=== PATIENT | female | born 1990 | race Caucasian/White ===

== ENCOUNTER → 2020-05-25 10:08 | Outpatient (BNVA) | payer MEDICAID, SELFPAY | PROVIDERS: Family Provider Family Medicine; Visit Provider Internal Medicine | DX: E89.0 Postprocedural hypothyroidism (principal); Z85.850 Personal history of malignant neoplasm of thyroid | CPT/HCPCS: 99203 ==

== ENCOUNTER 2020-05-26 10:55 | Outpatient (CLI) | payer MEDICAID, SELFPAY ==
[2020-05-26 11:40] LABS: Free T4 Free Thyroxine 1.89 ng/dL (0.82-1.77); Thyroid Stimulating Hormone 0.02 uIU/mL (0.27-4.20)
[2020-05-29 17:25] LABS: Thyroglobulin AB <1 IU/mL (< or = 1)
[2020-05-31 12:54] LABS: Thyroglobulin Level <0.4 ng/mL
== END 2020-05-26 10:56 | disposition home or self-care (01) ==
LOC: LAB 10:58
PROVIDERS: Family Provider Family Medicine; Visit Provider Internal Medicine
DX: E89.0 Postprocedural hypothyroidism (principal); Z85.850 Personal history of malignant neoplasm of thyroid
CPT/HCPCS: 84432; 84439; 84443; 86800

== ENCOUNTER → 2020-06-12 11:31 | Outpatient (BNVA) | payer MEDICAID, SELFPAY | PROVIDERS: Family Provider Family Medicine; Visit Provider Nurse Practitioner Family | DX: Z20.828 Contact with and (suspected) exposure to other viral communicable diseases (principal); J06.9 Acute upper respiratory infection, unspecified | CPT/HCPCS: 87635 ==

== ENCOUNTER 2020-06-15 07:34 | Outpatient (CLI) | payer MEDICAID, SELFPAY ==
--- NOTE | 2020-06-15 08:00 | US_ITS ---
WS: [id number] THYROID ULTRASOUND HISTORY: hx of papillary thyroid cancer s/p thyroidectomy in 2003 COMPARISON: 06/25/2016 Status post thyroidectomy. There is no residual thyroid tissue in the thyroid bed. No adjacent adenop athy along the cervical chains. US/US thyroid [id number] IMPRESSION: 1. Status post thyroidectomy. 2. No cervical chain lymphadenopathy.
== END 2020-06-15 07:35 | disposition home or self-care (01) ==
LOC: US 07:34
PROVIDERS: PCP Family Medicine; Visit Provider Internal Medicine
DX: Z85.850 Personal history of malignant neoplasm of thyroid (principal); E89.0 Postprocedural hypothyroidism
CPT/HCPCS: 76536

== ENCOUNTER → 2020-07-25 10:42 | Outpatient (BNVA) | payer MEDICAID, SELFPAY | PROVIDERS: PCP Family Medicine; Visit Provider Internal Medicine | DX: E89.0 Postprocedural hypothyroidism (principal); F32.81 Premenstrual dysphoric disorder; Z85.850 Personal history of malignant neoplasm of thyroid | CPT/HCPCS: 99214 ==

== ENCOUNTER → 2021-01-17 10:35 | Outpatient (BNVA) | payer MEDICAID, SELFPAY | PROVIDERS: PCP Family Medicine; Visit Provider Internal Medicine | DX: E89.0 Postprocedural hypothyroidism (principal); F32.81 Premenstrual dysphoric disorder; O99.280 Endocrine, nutritional and metabolic diseases complicating pregnancy, unspecified trimester; Z85.850 Personal history of malignant neoplasm of thyroid | CPT/HCPCS: 99214 ==

== ENCOUNTER → 2021-03-15 13:19 | Outpatient (BNVA) | payer MEDICAID, SELFPAY | PROVIDERS: PCP Family Medicine; Visit Provider Obstetrics & Gynecology | DX: Z34.80 Encounter for supervision of other normal pregnancy, unspecified trimester (principal); E07.9 Disorder of thyroid, unspecified | CPT/HCPCS: 84315; 87491; 87591 ==

== ENCOUNTER → 2021-03-21 09:26 | Outpatient (BNVA) | payer MEDICAID, SELFPAY | PROVIDERS: PCP Family Medicine; Visit Provider Obstetrics & Gynecology | DX: Z36.87 Encounter for antenatal screening for uncertain dates (principal) | CPT/HCPCS: 76805 ==

== ENCOUNTER → 2021-03-30 14:11 | Outpatient (BNVA) | payer MEDICAID, SELFPAY | PROVIDERS: PCP Family Medicine; Visit Provider Obstetrics & Gynecology | DX: O99.280 Endocrine, nutritional and metabolic diseases complicating pregnancy, unspecified trimester (principal); E07.9 Disorder of thyroid, unspecified; O99.212 Obesity complicating pregnancy, second trimester; F41.9 Anxiety disorder, unspecified; O99.340 Other mental disorders complicating pregnancy, unspecified trimester; Z85.850 Personal history of malignant neoplasm of thyroid; E89.0 Postprocedural hypothyroidism | CPT/HCPCS: 84315; 84439; 84443 ==

== ENCOUNTER → 2021-04-10 09:49 | Outpatient (BNVA) | payer MEDICAID, SELFPAY | PROVIDERS: PCP Family Medicine; Visit Provider Nurse Practitioner Women's Health | DX: Z34.80 Encounter for supervision of other normal pregnancy, unspecified trimester (principal); E07.9 Disorder of thyroid, unspecified; F41.9 Anxiety disorder, unspecified | CPT/HCPCS: 82950; 84315 ==

== ENCOUNTER → 2021-05-11 08:13 | Outpatient (BNVA) | payer MEDICAID, SELFPAY | PROVIDERS: PCP Family Medicine; Visit Provider Nurse Practitioner Women's Health | DX: O99.280 Endocrine, nutritional and metabolic diseases complicating pregnancy, unspecified trimester (principal); E07.9 Disorder of thyroid, unspecified; O99.340 Other mental disorders complicating pregnancy, unspecified trimester; F41.9 Anxiety disorder, unspecified | CPT/HCPCS: 84315; 84439; 84443; 85027 ==

== ENCOUNTER → 2021-06-05 08:48 | Outpatient (BNVA) | payer MEDICAID, SELFPAY | PROVIDERS: PCP Family Medicine; Visit Provider Obstetrics & Gynecology | DX: Z34.80 Encounter for supervision of other normal pregnancy, unspecified trimester (principal) | CPT/HCPCS: 80048; 84315; 85025 ==

== ENCOUNTER 2021-06-15 17:05 | Outpatient (CLI) | payer MEDICAID, SELFPAY ==
[2021-06-15] VITALS (29 sets, daily range): BP systolic 118–137; BP diastolic 60–75; PULSE 98–112; TEMP 36.5; O2SAT 99–100; BMI 31.8
[2021-06-15 17:47] LABS: Charge for UA Resulting for Rev
--- NOTE | 2021-06-15 18:07 | P.PCN_ITS ---
Procedure/Consent Procedure Narrative: NONSTRESS TEST: Place of test: [facility] [place]-L&D Indication: 30-year-old 6 para 2-0-3-2 at 33 weeks and 3 days, abdominal pain, possible elevated blood pressure. Date and time of test: 06/15/2021 Baseline: 150 Variability: Moderate variability Accelerations: Present Decelerations: No decelerations Tocometry: no Contractions INTERPRETATION: NST reactive, continue kick counts
[2021-06-15 18:55] LABS: Urine Color Yellow (Yellow)
[2021-06-15 18:56] LABS: Add Urine Microscopic? YES; Bilirubin Urine Neg (Negative); Blood Urine Neg (Negative); Glucose Urine UA Norm (Normal); Ketones Urine Negative (Negative); Leukocyte Esterase Urine 1+ (Negative); Nitrate Urine Negative (Negative); Protein Urine Neg (Negative); Specific Gravity, Urine 1.005 (1.005-1.030); Squamous Epithelial Cell Urine 15-25 /hpf (0-5); Urine Appearance SL Hazy (CLEAR); Urobilinogen Urine Norm (Negative); pH Urine 7 (5-7)
[2021-06-15 18:57] LABS: Add Urine Culture? No; Bacteria Urine 1+ /hpf
[2021-06-15 19:09] LABS: Urine Creatinine 74 mg/dL (28-217); Urine Protein Random 6 mg/dL
[2021-06-15 19:14] LABS: UPRO/UCREAT Ratio 0.08 mg/mg CR
== END 2021-06-15 19:40 | disposition home or self-care (01) ==
LOC: OPOB 17:12 → OBGYN 17:13
PROVIDERS: PCP Family Medicine; Visit Provider Obstetrics & Gynecology
DX: O16.3 Unspecified maternal hypertension, third trimester (principal); Z3A.33 33 weeks gestation of pregnancy
CPT/HCPCS: 81001; 81003; 82570; 84156; 99211

== ENCOUNTER → 2021-06-19 09:38 | Outpatient (BNVA) | payer MEDICAID, SELFPAY | PROVIDERS: PCP Family Medicine; Visit Provider Obstetrics & Gynecology | DX: Z34.90 Encounter for supervision of normal pregnancy, unspecified, unspecified trimester (principal); R79.89 Other specified abnormal findings of blood chemistry | CPT/HCPCS: 84315; 84443 ==

== ENCOUNTER → 2021-07-03 09:22 | Outpatient (BNVA) | payer MEDICAID, SELFPAY | PROVIDERS: PCP Family Medicine; Visit Provider Obstetrics & Gynecology | DX: Z34.90 Encounter for supervision of normal pregnancy, unspecified, unspecified trimester (principal) | CPT/HCPCS: 84315; 87081 ==

== ENCOUNTER 2021-07-21 15:00 | Inpatient (IN) | payer MEDICAID, SELFPAY ==
[2021-07-21] VITALS (13 sets, daily range): BP systolic 112–146; BP diastolic 62–79; PULSE 88–118; RESP 16–18; TEMP 36.8–37.3; BMI 32.4
[2021-07-21 14:41] LABS: Actim Prom Positive
[2021-07-21 14:54] LABS: Nitrazine Paper, PH Inconclusive
[2021-07-21 15:54] LABS: Basophils % 0.2 %; Eosinophils % 0.4 %; Hematocrit 34.1 % (37.0-47.0); Hemoglobin 11.3 g/dL (11.5-15.3); Lymphocytes # 2.3 10^3/uL (0.8-4.8); Lymphocytes % 24.6 %; Mean Corpuscular HGB Conc 33.1 g/dL (30.0-36.0); Mean Corpuscular Hemoglobin 30.7 pg (28.0-34.0); Mean Corpuscular Volume 92.7 fl (81-99); Mean Platelet Volume 9.1 fL (7.4-10.4); Monocytes # 0.5 10^3/uL (0.2-0.9); Monocytes % 5.4 %; Neutrophils # 6.32 10^3/uL (1.8-7.7); Neutrophils % 69.1 %; Nucleated Red Blood Cells % 0 %; Platelet Count 320 10^3/cmm (130-400); Red Blood Count 3.68 10^6/uL (4.1-5.3); Red Cell Distribution Width 13.7 % (12.1-15.1); White Blood Count 9.2 10^3/uL (4.0-10.0)
[2021-07-21] MEDS: dextrose 5%-lactated ringers 1,000 ML 125 ML IV (16:06)
[2021-07-21 18:15] LABS: Amphetamines Screen Urine Negative (Negative); Barbiturates Screen Urine Negative (Negative); Benzodiazepines Screen Urine Negative (Negative); Cocaine Screen Urine Negative (Negative); Opiate Screen Urine Negative (Negative); PCP Screen Urine Negative (Negative); THC Screen Urine Negative (Negative)
[2021-07-21] MEDS: miSOPROStol 100 mcg tablet 25 MCG VAGINAL (19:45)
[2021-07-22] VITALS (79 sets, daily range): BP systolic 90–142; BP diastolic 50–84; PULSE 76–214; RESP 16–18; TEMP 35.7–37.6; O2SAT 97–100
[2021-07-22] MEDS: oxytocin 30 UNIT/500 ML BAG IV (04:30)
[2021-07-22] MEDS: lactated ringers 1,000 ML 999 ML IV ×2 (06:15→08:28)
[2021-07-22] MEDS: levothyroxine 137 mcg Tablet PO (07:13)
--- NOTE | 2021-07-22 07:56 | ANES.PREANE2 ---
Pre-Anesthetic Assessment Pre-Anesthetic Assessment: Height/Weight: Height 1.68 m Weight 91.172 kg Temp Pulse Resp BP 97.3 F L 80 16 119/70 07/22/21 07:17 07/22/21 07:48 07/21/21 16:22 07/22/21 07:48 Preop Diagnosis: labor pain Proposed Procedure: epidural Familial anesthetic complications: none Was Beta Abby taken within 24 hours: N/A Was Clonidine taken within 24 hours: N/A Social: Social History: Tobacco and No alcohol Exam: Pre-Anes Outpt Exam: alert, oriented x 3, clear to auscultation bilaterally and regular rate & rhythm Airway: Submandibular: WNL Cervical ROM: WNL MP: 2 Dentition: Full Pulmonary: Pulmonary: None reported CV/HEM: CV/HEM: Anemia : : None reported Hepatic: Hepatic: None reported GI: GI: None reported Metabolic: Metabolic: Thyroid Musc/skel: Musc/skel: None reported Neuropsych: Neuropsych: Anxiety and Depression Anesthetic Plan: ASA status: 2 Anesthesia: Regional (specify below) Risk of > 500 ml blood loss (7ml/kg in children): No Meds/Allergies Current Medications: Current Medications Generic Name Dose Route Start Last Admin Trade Name Freq PRN Reason Stop Dose Admin Dextrose/Lactated Ringer's 1,000 mls @ 125 m ls/hr 07/21/21 15:00 07/22/21 06:15 Dextrose 5%-Lact ated Ringers IV 0 mls/hr .Q8H PJ Infusion Oxytocin 30 unit in 500 ml s @ 1 mls/hr 07/21/21 16:30 07/22/21 07:02 Pitocin IV 7 milliunit/min .Q24H PJ 7 mls/hr Titration Protocol 1 MILLIUNIT/MIN Lactated Ringer's 1,000 mls @ 999 m ls/hr 07/22/21 04:06 07/22/21 06:15 Lactated Ringers IV 999 mls/hr .Q1H1M PRN Administration See label comment s Gentamicin Sulfate 80 mg/ 52 mls @ 104 mls/ hr 07/22/21 07:00 07/22/21 07:05 Sodium Chloride IV 104 mls/hr Q8H PJ Administration Levothyroxine Sodi um 137 mcg 07/22/21 09:00 07/22/21 07:13 Levothyroxine 13 7 Mcg Tablet PO 137 mcg DAILY PJ Administration PFSH Anesthesia PFSH: Medical History Anxiety Hx of papillary thyroid carcinoma No pertinent past medical history neghx: htn,dm,dvt/pe PCP: Dr. Tellez Post-surgical hypothyroidism managed by Sancho Surgical History (Updated 07/21/21 @ 16:51 by Vannesa Paz RN) H/O thyroidectomy Hx of neck surgery removal of mets after thyroidectomy-- 2 surgeries 2017 and 2004 Family History Mother Bleeding disorder Von Willebrand Hypercholesteremia Hypertension Thyroid disease Grandfather Colon cancer Maternal--dx age 50's Grandmother Diabetes Paternal Sister Thyroid disease Denies family history of Ovarian cancer Heart disease Breast cancer Uterine cancer Stroke Social History Smoking and tobacco status: current every day smoker e-cigarettes E-Cigarette Details: vaporizer device and with nicotine E-cig/vape details: several times per day Smoking risk assessment/counseling performed?: Yes Alcohol intake: former Former alcohol use details: prior to Counseling given: No Counseling given: No Lives independently: Yes Household members: children Marital status: Single History of recent travel: No Current gender identity: Female Female Reproductive History: Date of last menstrual period: 10/24/20 : 6 Data Anesthesia CBC & Chem 7: 07/21/21 15:30 Other Labs: Laboratory Results - last 48 hr 07/21/21 07/21/21 07/21/21 14:25 15:30 17:55 WBC 9.2 RBC 3.68 L Hgb 11.3 L Hct 34.1 L MCV 92.7 MCH 30.7 MCHC 33.1 RDW 13.7 Plt Count 320 MPV 9.1 Neut % (Auto) 69.1 Lymph % (Auto) 24.6 [place] % (Auto) 5.4 Eos % (Auto) 0.4 Baso % (Auto) 0.2 Neut # (Auto) 6.32 Lymph # (Auto) 2.3 [place] # (Auto) 0.5 Eos # (Auto) 0.0 Baso # (Auto) 0.0 Nucleated RBC % (auto) 0 Nucleated RBCs # 0.0 Insulin-like GF I Positive Urine Opiates Screen Negative Ur Barbiturates Screen Negative Ur Phencyclidine Scrn Negative Ur Amphetamines Screen Negative U Benzodiazepines Scrn Negative Urine Cocaine Screen Negative U Marijuana (THC) Screen Negative Cardiac Studies: No Data to Display
--- NOTE | 2021-07-22 08:25 | ANES.PROC ---
Anesthesia Procedures Procedure/Date: 07/22/21 epidural Procedure Narrative: epidural complete, bolus given, epidural pump initiated with COTTON PICKER education given, vitals taken during procedure using OBIX system and satisfactory throughout, patient admits to decrease pain, report of procedure to OB RN Epidural: Time Out Performed: Yes Consents Signed: Procedure Consent Consent: requested by attending/covering physician, from patient, risks and benefits reviewed and patient agrees to proceed Lumbar Level: L3-L4 Epidural position: sitting Epidural procedure: sterile prep of area, 1% lidocaine to numb the area (3 mL), 18 g needle, negative for paresthesia passed, neg for paresthesia, test dose given, 1.5% xylocaine 1:200k epi (5 mL), 0.2% Ropivacaine bolus ml (5 mL), placed PCEA, no systemic response, sterile dressing applied, L.U.D. no apparent complications and 0.2% Ropiavacaine @ mls/hr (13 mL/hr)
--- NOTE | 2021-07-22 09:13 | PM.OPHPUD ---
Labor & Delivery H&P Update Date of Procedure: July 22, 2021 Date H&P Performed: 07/17/21 H&P update information: I have reviewed H&P completed within last 30 days, I have examined patient prior to procedure and Changes to prior documentation as noted here Changes to previous documentation: The patient has had PROM. confirmed with actin prom. cervix is unchanged Admission Diagnosis: Preop diagnosis: labor pain
[2021-07-22] MEDS: BuSPIRONE 10 mg Tablet PO ×2 (11:03→21:56)
[2021-07-22] MEDS: ondansetron 2 mg/ML SDV 2 mL 4 MG IVP (13:17)
--- NOTE | 2021-07-22 14:17 | PM.DELIVERY ---
Delivery Note: Date of delivery: July 22, 2021 Pre-delivery diagnoses: iup at 38w5d, PROM Post-delivery diagnoses: same-delivered Procedure: Op report anesthesia: Epidural Delivering Physician: osman Estimated blood loss (mL): 10 Findings: term female in the cephalic presentation Pre-Delivery Course: The patient was admitted with premature rupture of membranes. She initially refused pitocin and was allowed a natural labor. She made little change and was agreeable to placement of cytotec. She had some cervical change, but then labor stalled completely. She agreed to the use of pitocin. At 18 hours of rupture, Ancef and Gentamycin was started for antibiotic prophylaxis. She became uncomfortbale and received an epidural. The pitocin was discontinued at 8 cm dilation. She had complete cervical dilation about 90 minutes later and began pushing. Delivery: The patient had complete cervical dilation and began to push. The head delivered in the CHILO position over an intact perineum under epidural anesthesia. The nose and mouth were bulb suctioned. The shoulders and body delivered atraumatically. The baby was placed onto the mother's abdomen. The cord was clamped and cut. The placenta delivered spontaneously. It was inspected and found to be intact. Inspection of the perineum revealed no lacerations. Estimated blood loss 10 mL. Apgars on baby were 9 at 1 minute and 9 at 5 minutes. Weight of baby is pending. Mother and baby were stable post delivery. A&P Assessment and plan (1) Anemia affecting : Status: Acute Qualifiers: Trimester: third trimester Qualified Code(s): O99.013 - Anemia complicating , third trimester (2) Post-surgical hypothyroidism: Status: Acute (3) Obesity affecting : Status: Acute Qualifiers: Trimester: second trimester Qualified Code(s): O99.212 - Obesity complicating , second trimester (4) Supervision of other normal : Status: Acute Coding Level of Care Code Acute Bottom Turning Lathe Turner for [facility] Fwd Diagnoses Anemia affecting O99.013 Trimester: third trimester Post-surgical hypothyroidism E89.0 Obesity affecting O99.212 Trimester: second trimester Supervision of other normal Z34.80
[2021-07-22] MEDS: buPROPion XL (24 HR) 300 mg Tablet PO (15:15)
[2021-07-22] MEDS: dextrose 5%-lactated ringers 1,000 ML 125 ML IV (16:43)
[2021-07-22] MEDS: ibuprofen 800 mg tablet PO ×2 (16:50→21:56)
[2021-07-22] MEDS: docusate sodium 100 mg Capsule PO (19:44)
[2021-07-22] MEDS: benzocaine-menthol 78 gm Canister 1 SPRAY TOPICAL (19:44)
--- NOTE | 2021-07-22 20:16 | PC.NURSE ---
Home medications Patient stated she takes her levothyroxine in the morning at 0700, then buspar at 1100, and wellbutrin at 1215, allowing for separation between medications and her thyroid medication to properly absorb without coadministering with other medications. This nurse attempted to adjust medication schedule to match patient's home schedule, [facility] did not allow. Medications given according to home schedule, wellbutrin given after delivery.
[2021-07-23 00:20] VITALS: BP 107/68; PULSE 87; RESP 18
[2021-07-23 03:14] LABS: Hematocrit 30.5 % (37.0-47.0); Hemoglobin 10.1 g/dL (11.5-15.3); Mean Corpuscular HGB Conc 33.1 g/dL (30.0-36.0); Mean Corpuscular Hemoglobin 31.2 pg (28.0-34.0); Mean Corpuscular Volume 94.1 fl (81-99); Mean Platelet Volume 9.4 fL (7.4-10.4); Platelet Count 271 10^3/cmm (130-400); Red Blood Count 3.24 10^6/uL (4.1-5.3); Red Cell Distribution Width 13.9 % (12.1-15.1)
[2021-07-23 04:00] VITALS: BP 96/64; PULSE 83; RESP 18; TEMP 36.9
--- NOTE | 2021-07-23 07:48 | PM.DCS ---
Discharge Providers Date of Admission: 07/21/21 15:00 Date of Discharge: July 23, 2021 Attending Provider at Admission: Brunilda Peralta MD Attending Provider at Discharge: Brunilda Peralta MD Primary Care Provider: Ruslan Tellez MD Diagnoses at Discharge Discharge Diagnosis (1) Anemia affecting : Status: Acute Qualifiers: Trimester: third trimester Qualified Code(s): O99.013 - Anemia complicating , third trimester (2) Post-surgical hypothyroidism: Status: Acute Permanent problem details: managed by Sancho (3) Obesity affecting : Status: Acute Qualifiers: Trimester: second trimester Qualified Code(s): O99.212 - Obesity complicating , second trimester (4) Supervision of other normal : Status: Acute Reason for Visit Reason for Visit: Leaking Fluid Hospital Course Hospital Course The patient was admitted for PROM. She had cytotec and pitocin augmentation and had a spontaneous delivery of a term female . She did well and was ready for discharge on day #1. Physical Exam Narrative: EXAM NARRATIVE: The patient is doing well this morning. No concerns Const: COMMON NORMALS: no acute distress, patient oriented x3, no limitations, alert and well nourished GENERAL APPEARANCE: cooperative, comfortable, well kempt and well developed ORIENTATION/CONSCIOUSNESS: Yes awake, Yes oriented to person, Yes oriented to place and Yes oriented to time Resp: COMMON NORMALS: normal respiratory effort EFFORT & INSPECTION: Yes able to speak in complete sentences GI: COMMON NORMALS: Soft to palpation and non-tender PALPATION: Yes Soft to palpation Extremity: COMMON NORMALS: no calf tenderness Neuro: COMMON NORMALS: patient oriented x3 SENSORIUM/ORIENTATION: Yes alert, Yes oriented to person, Yes oriented to place and Yes oriented to time Psych: APPEARANCE: Yes well kempt Urinary Catheter Management^: [place]: Cath Placed During This Visit: yes, but has since been removed by the nurse Reason for Continuing Indwelling Catheter: Decision to DC Catheter Urinary Catheter Date of Insertion: 07/22/21 Urinary Catheter Time of Insertion: 08:40 Date Urinary Catheter Removed: 07/22/21 Time Urinary Catheter Discontinued: 13:52 Discharge Data Data Completed and Pending: Labs from last 24 hours 07/23/21 02:20 WBC 15.0 H RBC 3.24 L Hgb 10.1 L Hct 30.5 L MCV 94.1 MCH 31.2 MCHC 33.1 RDW 13.9 Plt Count 271 MPV 9.4 Vitals: Last Vital Signs Temp 98.4 F 07/23/21 04:00 Pulse 83 07/23/21 04:00 Resp 18 07/23/21 04:00 BP 96/64 07/23/21 04:00 Pulse Ox 97 07/22/21 18:57 Discharge Plan Discharge Patient Disposition: Home Condition: Stable Prescriptions: Continued bupropion HCl [Wellbutrin XL] 150 mg tablet extended release 24 hr 300 mg PO QAM RF: 0 prenat.vits,clem,[id number]-[id number]-uzixv Tablet 1 tab PO DAILY RF: 0 ferrous sulfate 325 mg (65 mg iron) tablet 325 mg PO BID 30 Days Qty: 60 RF: 3 levothyroxine 137 mcg capsule 137 mcg PO DAILY Qty: 30 RF: 1 buspirone 10 mg tablet 10 mg PO BID Qty: 60 RF: 1 Discharge Orders: Discharge Order (Routine); Ordered 07/23/21 Ordered By: Brunilda Peralta Patient Instructions: Opioid Safety Discharge Attestations Time Spent in Discharge Care*: less than 30 min Quality Metrics Clinical Quality Measures During this hospital stay, did patient experience: None Coding Level of Care Code Acute Chg FW DC note Diagnoses Anemia affecting O99.013 Trimester: third trimester Post-surgical hypothyroidism E89.0 Obesity affecting O99.212 Trimester: second trimester Supervision of other normal Z34.80
[2021-07-23] MEDS: HYDROcodone-acetaminophen 5-325 mg Tablet PO (07:54)
[2021-07-23 09:20] VITALS: BP 128/72; PULSE 72; RESP 16; TEMP 36.7; O2SAT 98
[2021-07-23] MEDS: ibuprofen 800 mg tablet PO ×2 (09:22→15:23)
[2021-07-23] MEDS: docusate sodium 100 mg Capsule PO (09:23)
[2021-07-23] MEDS: prenatal vitamin Capsule 1 CAP PO (09:23)
--- NOTE | 2021-07-23 14:32 | ANE.PACU2 ---
Inpatient post-anesthesia follow up: Airway intact: Yes Vital signs: Temperature 98.1 F Pulse Rate 72 Respiratory Rate 16 Blood Pressure 128/72 Pulse Oximetry 98 Oxygen Delivery Me thod Room Air Oxygen Flow Rate Fraction of Inspir ed Oxygen Hydration adequate: Yes Nausea and vomiting: No Pain level: 2 Mental status: Baseline
[2021-07-23] MEDS: measles,mumps,rubella pf Vial (w/diluent) 0.5 ML SUBCUT (15:23)
[2021-07-23 15:45] VITALS: BP 118/73; PULSE 91; RESP 19; TEMP 36.7; O2SAT 97
--- NOTE | 2021-07-23 16:52 | PC.RESP ---
SMOKING CESSATION INFORMATION SENT TO PATIENT.
== END 2021-07-23 16:20 | disposition home or self-care (01) | DRG 807 ==
LOC: OPOB 15:01 → OBGYN 15:01
PROVIDERS: Admitting Provider Obstetrics & Gynecology; PCP Family Medicine; Visit Provider Obstetrics & Gynecology
DX: O99.02 Anemia complicating childbirth (principal); Z37.0 Single live birth; D64.9 Anemia, unspecified; O99.344 Other mental disorders complicating childbirth; F41.9 Anxiety disorder, unspecified; O99.334 Smoking (tobacco) complicating childbirth; F17.290 Nicotine dependence, other tobacco product, uncomplicated; O99.214 Obesity complicating childbirth; Z3A.38 38 weeks gestation of pregnancy; Z88.0 Allergy status to penicillin; Z88.2 Allergy status to sulfonamides; Z85.850 Personal history of malignant neoplasm of thyroid; E89.0 Postprocedural hypothyroidism
CPT/HCPCS: 36415; 51702; 59025; 59409; 80306; 83986; 84112; 85025; 85027; 90707; 96372; 99211; J0690; J1580; J2405; J2795

== ENCOUNTER → 2021-08-02 14:04 | Outpatient (BNVA) | payer MEDICAID, SELFPAY | PROVIDERS: PCP Family Medicine; Visit Provider Obstetrics & Gynecology | DX: N89.8 Other specified noninflammatory disorders of vagina (principal) | CPT/HCPCS: 87070; 87205; 87481; 87512; 87798; 87799 ==

== ENCOUNTER 2021-08-22 11:12 | Outpatient (CLI) | payer MEDICAID, SELFPAY ==
[2021-08-22 12:07] LABS: Free T4 Free Thyroxine 1.83 ng/dL (0.82-1.77)
== END 2021-08-22 11:13 | disposition home or self-care (01) ==
LOC: LAB 11:16
PROVIDERS: PCP Family Medicine; Visit Provider Internal Medicine
DX: E07.9 Disorder of thyroid, unspecified (principal); E89.0 Postprocedural hypothyroidism; F32.81 Premenstrual dysphoric disorder; O99.280 Endocrine, nutritional and metabolic diseases complicating pregnancy, unspecified trimester
CPT/HCPCS: 36415; 84439; 84443

== ENCOUNTER → 2021-10-23 15:02 | Outpatient (BNVA) | payer MEDICAID, SELFPAY | PROVIDERS: PCP Family Medicine; Visit Provider Internal Medicine | DX: E89.0 Postprocedural hypothyroidism (principal); F32.81 Premenstrual dysphoric disorder; C73 Malignant neoplasm of thyroid gland; F17.290 Nicotine dependence, other tobacco product, uncomplicated | CPT/HCPCS: 99214 ==

== ENCOUNTER 2021-12-27 12:09 | Outpatient (CLI) | payer MEDICAID, SELFPAY ==
[2021-12-27 16:23] LABS: Free T4 Free Thyroxine 1.34 ng/dL (0.82-1.77); Thyroid Stimulating Hormone 0.76 uIU/mL (0.27-4.20)
[2021-12-28 14:23] LABS: Thyroglobulin AB <1 IU/mL (< or = 1)
[2022-01-02 07:17] LABS: Thyroglobulin Level <0.4 ng/mL
== END 2021-12-27 12:10 | disposition home or self-care (01) ==
PROVIDERS: PCP Family Medicine; Visit Provider Internal Medicine
DX: E89.0 Postprocedural hypothyroidism (principal); F32.81 Premenstrual dysphoric disorder
CPT/HCPCS: 84432; 84439; 84443; 86800

== ENCOUNTER → 2022-01-10 13:43 | Outpatient (BNVA) | payer MEDICAID, SELFPAY | PROVIDERS: PCP Family Medicine; Visit Provider Internal Medicine | DX: C73 Malignant neoplasm of thyroid gland (principal); E89.0 Postprocedural hypothyroidism; F32.81 Premenstrual dysphoric disorder; F17.290 Nicotine dependence, other tobacco product, uncomplicated | CPT/HCPCS: 99214 ==

== ENCOUNTER 2022-03-05 14:42 | Outpatient (CLI) | payer MEDICAID, SELFPAY ==
--- NOTE | 2022-03-05 15:15 | US_ITS ---
WS: [id number] THYROID ULTRASOUND HISTORY: Abnormalities COMPARISON: 06/15/2020 Status post thyroidectomy. There are no masses or recurrent tissue in the thyroid bed. No lymphadenop athy along the cervical chains. US/US thyroid [id number] IMPRESSION: Status post thyroidectomy. No recurrent soft tissue at the thyroid bed or adeno gabby.
== END 2022-03-05 14:43 | disposition home or self-care (01) ==
LOC: RAD 14:42
PROVIDERS: PCP Family Medicine; Visit Provider Internal Medicine
DX: C73 Malignant neoplasm of thyroid gland (principal); E89.0 Postprocedural hypothyroidism; E07.9 Disorder of thyroid, unspecified
CPT/HCPCS: 76536

== ENCOUNTER 2022-04-17 03:47 | Emergency (ER) | payer MEDICAID, SELFPAY ==
[2022-04-17 03:51] VITALS: BP 124/83; PULSE 87; RESP 16; TEMP 37.1; O2SAT 100; BMI 29.0
--- NOTE | 2022-04-17 04:02 | ED_ITS ---
HPI - Dental/Oral General: Chief complaint: Dental/Oral Stated complaint: dental pain Time Seen by Provider: 04/17/22 03:49 Source: patient Mode of arrival: ambulatory Limitations: no limitations History of Present Illness: 31-year-old female states she been having dental pain for the last 2 days she states that she had sleep a night due to her pain states her pain is a 7 out of 10 she states that she has pain over left upper molar and lower molar she does have a history of dental caries states she is not able to get into her dentist denies any fever denies any trismus denies any difficulty swallowing. Associated symptoms: Denies fever(s) Review of Systems Const: Denies: fever(s), chills, body aches or change in appetite Eyes: Denies: blurry vision or eye discomfort ENMT: Reports: dental pain; Denies: throat pain Card: Denies: chest pain Resp: Denies: dyspnea GI: Denies: abdominal pain, nausea, vomiting or diarrhea : Denies: dysuria Musc: Denies: neck pain or back pain Skin/Breast: Denies: rash Neuro: Denies: headache(s) Psych: Denies: depression [place]/Lymph: Denies: easy bruising All/Imm: Denies: urticaria PFSH ED PFSH: Medical History Anxiety Hx of papillary thyroid carcinoma No pertinent past medical history neghx: htn,dm,dvt/pe PCP: Dr. Tellez Post-surgical hypothyroidism managed by Sancho Surgical History H/O thyroidectomy History of removal of cyst Hx of neck surgery removal of mets after thyroidectomy-- 2 surgeries 2017 and 2004 Family History Mother Bleeding disorder Von Willebrand Hypercholesteremia Hypertension Thyroid disease Grandfather Colon cancer Maternal--dx age 50's Grandmother Diabetes Paternal Sister Thyroid disease Denies family history of Ovarian cancer Heart disease Breast cancer Uterine cancer Stroke Social History Smoking and tobacco status: current every day smoker e-cigarettes E-Cigarette Details: vaporizer device and with nicotine E-cig/vape details: several times per day Alcohol intake: former Former alcohol use details: prior to Current gender identity: Female Female Reproductive History: Date of last menstrual period: 04/11/22 Physical Exam Const: COMMON NORMALS: no acute distress, patient oriented x3 and healthy appearing HENMT: COMMON NORMALS: normocephalic and atraumatic HEAD & SCALP: normocephalic and atraumatic OTHER: Tenderness along left upper and lower molar no obvious abscess or trismus Eye: COMMON NORMALS: Equal, round and reactive pupils present and EOMs intact bilaterally PUPIL: Yes Equal, round and reactive pupils present Neck/C-Spine: COMMON NORMALS: full ROM and supple Chest: COMMONS NORMALS: normal inspection of the chest Resp: COMMON NORMALS: normal respiratory effort Cardio: COMMON NORMALS: regular rate, regular rhythm and No murmurs present (Cardio) RATE: regular rate RHYTHM: regular rhythm GI: INSPECTION: Yes normal to inspection Extremity: COMMON NORMALS: normal to inspection and full ROM Neuro: COMMON NORMALS: patient oriented x3, moves all extremities and no focal motor deficits Psych: COMMON NORMALS: mental status grossly normal, Normal thought process present and cooperative THOUGHT PROCESS: Normal thought process present Skin: COMMON NORMALS: no rashes or lesions noted and no wounds GENERAL SKIN EXAM: no rashes or lesions noted Course Vital Signs: Vital signs: Vital Signs Temperature 98.7 F 04/17/22 03:51 Pulse Rate 87 04/17/22 03:51 Respiratory Rate 16 04/17/22 03:51 Blood Pressure 124/83 04/17/22 03:51 Pulse Oximetry 100 04/17/22 03:51 [facility] - Dental/Oral Medical Decision Making Patient presents here with dental pain no signs of abscess she is to follow-up with dentist we will start her on antibiotics along with Aleve for her pain. Discharge Plan Discharge Patient Disposition: Home Clinical Impression: Toothache, Dental caries Condition: Stable Prescriptions: New cephalexin 500 mg capsule 500 mg PO TID 7 Days Qty: 21 0RF Naprosyn 500 mg tablet 500 mg PO BID PRN (Reason: pain) Qty: 20 0RF No Action bupropion HCl [Wellbutrin XL] 150 mg tablet extended release 24 hr 300 mg PO QAM 0RF prenat.vits,clem,pej-vzde-jnzsv Tablet 1 tab PO DAILY 0RF buspirone 15 mg tablet 15 mg PO BID 0RF Label Comments: 15 mg in am 30 mg in pm levothyroxine 137 mcg tablet 137 mcg PO DAILY Qty: 90 3RF Rx Instructions: Take one tablet by mouth daily, one hour before medicine or breakfast. Discharge Orders: Discharge ED (Routine); Ordered 04/17/22 Ordered By: Nick Daniel Referrals: Ruslan Tellez MD [Primary Care Provider] - Discharge Diet: Advance as tolerated Discharge Activity: Resume usual activity Patient Instructions: Toothache (ED) Coding Level of Care Code ED Night Stocker for [place] Rachel
[2022-04-17] MEDS: HYDROcodone-acetaminophen 7.5-325 mg Tablet 1 TAB PO (04:05)
[2022-04-17] MEDS: cephALEXin 500 mg Capsule PO (04:05)
== END 2022-04-17 04:12 | disposition home or self-care (01) ==
PROVIDERS: Emergency Provider Emergency Medicine; PCP Family Medicine
DX: K08.89 Other specified disorders of teeth and supporting structures (principal); K02.9 Dental caries, unspecified; F17.290 Nicotine dependence, other tobacco product, uncomplicated
CPT/HCPCS: 99283

== ENCOUNTER 2022-06-11 12:29 | Outpatient (CLI) | payer MEDICAID, SELFPAY ==
[2022-06-11 13:34] LABS: Thyroid Stimulating Hormone 0.03 uIU/mL (0.27-4.20)
[2022-06-12 15:27] LABS: Thyroglobulin AB <1 IU/mL (< or = 1)
[2022-06-17 09:57] LABS: Thyroglobulin Level <0.4 ng/mL
== END 2022-06-11 12:30 | disposition home or self-care (01) ==
PROVIDERS: PCP Family Medicine; Visit Provider Internal Medicine
DX: C73 Malignant neoplasm of thyroid gland (principal); E89.0 Postprocedural hypothyroidism
CPT/HCPCS: 36415; 84432; 84439; 84443; 86800

== ENCOUNTER 2022-08-14 20:51 | Emergency (ER) | payer MEDICAID, SELFPAY ==
[2022-08-14 21:00] VITALS: BP 131/83; PULSE 92; RESP 16; TEMP 36.5; O2SAT 98; BMI 29.0
--- NOTE | 2022-08-14 21:00 | ECG_ITS ---
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 Measurements Intervals [place] Rate: 90 P: 45 OK: 176 QRS: 49 QRSD: 99 T: 43 QT: 369 QTc: 453 Interpretive Statements SINUS RHYTHM Compared to ECG 11/25/2018 10:13:20 Sinus arrhythmia no longer present Electronically Signed On 08-15-2022 5:26:33 CDT by Shanice Turner M.D. [id number]
== END 2022-08-14 21:32 | disposition left against medical advice (07) ==
PROVIDERS: Emergency Provider Family Medicine; PCP Family Medicine
DX: Z53.21 Procedure and treatment not carried out due to patient leaving prior to being seen by health care provider (principal)
CPT/HCPCS: 93005; 99283

== ENCOUNTER 2023-05-28 08:31 | Outpatient (CLI) | payer MEDICAID, SELFPAY ==
[2023-05-28 09:17] LABS: Free T4 Free Thyroxine 1.53 ng/dL (0.82-1.77); Thyroid Stimulating Hormone 0.01 uIU/mL (0.27-4.20)
== END 2023-05-28 08:32 | disposition home or self-care (01) ==
PROVIDERS: PCP Family Medicine; Visit Provider Internal Medicine
DX: E89.0 Postprocedural hypothyroidism (principal)
CPT/HCPCS: 36415; 84439; 84443

== ENCOUNTER 2023-11-21 14:42 | Outpatient (CLI) | payer MEDICAID, SELFPAY ==
[2023-11-21 15:28] LABS: Free T4 Free Thyroxine 2.05 ng/dL (0.82-1.77); Thyroid Stimulating Hormone 0.01 uIU/mL (0.27-4.20)
[2023-11-26 13:13] LABS: Thyroglobulin AB <1 IU/mL (< or = 1)
[2023-11-28 16:45] LABS: Thyroglobulin Level <0.4 ng/mL
== END 2023-11-21 14:43 | disposition home or self-care (01) ==
LOC: LAB 14:42
PROVIDERS: PCP Family Medicine; Visit Provider Internal Medicine
DX: E89.0 Postprocedural hypothyroidism (principal); C73 Malignant neoplasm of thyroid gland
CPT/HCPCS: 36415; 84432; 84439; 84443; 86800

== ENCOUNTER 2024-01-22 11:15 | Outpatient (CLI) | payer MEDICAID, SELFPAY ==
--- NOTE | 2024-01-22 11:15 | US_ITS ---
WS: [id number] THYROID ULTRASOUND HISTORY: thyroid carcinoma COMPARISON: 03/05/2022 Status post complete thyroidectomy. There is no suspicious mass in the thyroid bed. No areas of incre ased vascularity. No cervical chain adenopathy. IMPRESSION: Complete thyroidectomy. No evidence for recurrent mass or adenopathy.
== END 2024-01-22 11:16 | disposition home or self-care (01) ==
PROVIDERS: PCP Family Medicine; Visit Provider Internal Medicine
DX: E89.0 Postprocedural hypothyroidism (principal); C73 Malignant neoplasm of thyroid gland
CPT/HCPCS: 76536

== ENCOUNTER → 2024-06-09 18:09 | Outpatient (BNVA) | payer MEDICAID, SELFPAY | PROVIDERS: PCP Family Medicine; Visit Provider Registered Nurse Neonatal Intensive Care | DX: M79.671 Pain in right foot (principal); M25.474 Effusion, right foot | CPT/HCPCS: 73630 ==

== ENCOUNTER 2024-10-27 09:32 | Outpatient (CLI) | payer MEDICAID, SELFPAY ==
[2024-10-27 10:16] LABS: Thyroid Stimulating Hormone 0.01 uIU/mL (0.27-4.20)
== END 2024-10-27 09:33 | disposition home or self-care (01) ==
LOC: LAB 09:37
PROVIDERS: PCP Family Medicine; Visit Provider Internal Medicine
DX: C73 Malignant neoplasm of thyroid gland (principal); E89.0 Postprocedural hypothyroidism; O99.280 Endocrine, nutritional and metabolic diseases complicating pregnancy, unspecified trimester; E07.9 Disorder of thyroid, unspecified
CPT/HCPCS: 36415; 84439; 84443

== ENCOUNTER → 2024-11-18 08:27 | Outpatient (BNVA) | payer MEDICAID, SELFPAY | PROVIDERS: PCP Family Medicine; Visit Provider Internal Medicine | DX: C73 Malignant neoplasm of thyroid gland (principal) | CPT/HCPCS: 36415; 84432; 86800 ==

== ENCOUNTER 2024-11-25 09:54 | Outpatient (CLI) | payer MEDICAID, SELFPAY ==
--- NOTE | 2024-11-25 10:00 | US_ITS ---
WS: [id number] THYROID ULTRASOUND HISTORY: thyroid cancer COMPARISON: 01/22/2024 Complete thyroidectomy. No residual or new thyroid tissue along the thyroid bed. There are small cervical chain lymph nodes. No adenopathy. US/US thyroid [id number] IMPRESSION: Complete thyroidectomy. No recurrent mass.
== END 2024-11-25 09:55 | disposition home or self-care (01) ==
LOC: RAD 09:56
PROVIDERS: PCP Family Medicine; Visit Provider Internal Medicine
DX: C73 Malignant neoplasm of thyroid gland (principal); Z98.890 Other specified postprocedural states; R59.0 Localized enlarged lymph nodes
CPT/HCPCS: 36415; 76536; 84432; 86800

== ENCOUNTER 2025-05-02 13:43 | Outpatient (CLI) | payer MEDICAID, SELFPAY ==
--- NOTE | 2025-05-02 14:00 | MM_ITS ---
WS: [id number] BILATERAL 3D TOMOSYNTHESIS DIGITAL DIAGNOSTIC MAMMOGRAPHY WITH CAD CLINICAL INFORMATION: MASS OF UPPER OUTER QUADRANT OF RIGHT BREAST HISTORY: RIGHT breast lump COMPARISON: Baseline TECHNIQUE: Bilateral CC, MLO, and ML views. FINDINGS: The breasts are composed of heterogeneous fibroglandular density, which can limit the detection of small underlying mass lesions. Dense parenchymal tissue deep to the palpable marker. Ultrasound of this area is pending. ULTRASOUND BREAST RIGHT TECHNIQUE: Ultrasound right breast focused area of concern. CLINICAL INFORMATION: MASS OF UPPER OUTER QUADRANT OF RIGHT BREAST FINDINGS: No suspicious abnormalities in the area of palpable concern. No suspicious abnormalities in the subareolar area. Recommend annual screening mammography age 40 MM/MM diag BI tomosynthesis [id number] IMPRESSION: DENSITY: The breasts are heterogeneously dense, which may obscure small masses. BI-RADS: 2 - Benign FOLLOW UP: Age 38 Recommend annual screening mammography age 40
--- NOTE | 2025-05-02 14:30 | US_ITS ---
WS: [id number] BILATERAL 3D TOMOSYNTHESIS DIGITAL DIAGNOSTIC MAMMOGRAPHY WITH CAD CLINICAL INFORMATION: MASS OF UPPER OUTER QUADRANT OF RIGHT BREAST HISTORY: RIGHT breast lump COMPARISON: Baseline TECHNIQUE: Bilateral CC, MLO, and ML views. FINDINGS: The breasts are composed of heterogeneous fibroglandular density, which can limit the detection of small underlying mass lesions. Dense parenchymal tissue deep to the palpable marker. Ultrasound of this area is pending. ULTRASOUND BREAST RIGHT TECHNIQUE: Ultrasound right breast focused area of concern. CLINICAL INFORMATION: MASS OF UPPER OUTER QUADRANT OF RIGHT BREAST FINDINGS: No suspicious abnormalities in the area of palpable concern. No suspicious abnormalities in the subareolar area. Recommend annual screening mammography age 40 US/US breast RT limited* [id number] IMPRESSION: DENSITY: The breasts are heterogeneously dense, which may obscure small masses. BI-RADS: 2 - Benign FOLLOW UP: Age 38 Recommend annual screening mammography age 38
== END 2025-05-02 13:44 | disposition home or self-care (01) ==
LOC: RAD 13:45
PROVIDERS: PCP Family Medicine; Visit Provider Family Medicine
DX: N63.11 Unspecified lump in the right breast, upper outer quadrant (principal); R92.333 Mammographic heterogeneous density, bilateral breasts
CPT/HCPCS: 76642; 77062; G0279

== ENCOUNTER → 2025-07-21 13:46 | Outpatient (BNVA) | payer MEDICAID, SELFPAY | PROVIDERS: PCP Family Medicine | DX: J02.9 Acute pharyngitis, unspecified (principal) | CPT/HCPCS: 87071; 87880 ==